=== PATIENT | female | born 1940 | race Caucasian/White ===

== ENCOUNTER 2020-10-14 10:51 | Outpatient (REF) | payer MEDICARE, SELFPAY ==
--- NOTE | ~2020-10-14 | MM_ITS ---
EXAMINATION: BONE DENSITOMETRY CLINICAL INDICATION: Other specified disorders of bone density and structure. COMPARISON: Previous BD dated 06/10/2016 and baseline BD dated 04/06/2011. TECHNIQUE: Using a [employer] DXA System (software version: 13.1) manufactured by [employer], dual-energy x-ray absorptiometry was performed of the lumbar spine and left hip. The images are of good technical quality. Summary results are attached. FINDINGS: AP SPINE L1-L4: Current: BMD 1.304 g/cm2, Z-score 2.0, T-score 1.0, normal, 8.8% increase from previous, 1.7% increase from baseline (<5% change is not significant). Prior: BMD 1.198 g/cm2. Baseline: BMD 1.282 g/cm2. LEFT FEMUR, NECK: Current: BMD 0.868 g/cm2, Z-score 0.3, T-score -1.2, osteopenia. Prior: BMD 0.896 g/cm2. Baseline: BMD 0.854 g/cm2. LEFT FEMUR, TOTAL: Current: BMD 1.066 g/cm2, Z-score 1.8, T-score 0.5, normal, 1.1% decrease from previous, 3.4% decrease from baseline (<5% change is not significant). Prior: BMD 1.078 g/cm2. Baseline: BMD 1.104 g/cm2. IDENTIFIED RISK FACTORS: Height loss, low calcium intake, secondary osteoporosis, menopause, bilateral oophorectomy. HISTORY OF FRACTURE: Wrist, trauma, childhood. MEDICATIONS: Calcium supplements or multivitamin, vitamin D. MM/XR DEXA axial skeleton IMPRESSION: 1. DIAGNOSIS: Osteopenia based on the lowest T-score value of -1.2 in the femoral neck applying World Health Organization criteria. 2. 10-YEAR FRACTURE RISK PREDICTION, FRAX: Major osteoporotic fracture (clinical spine, forearm, hip or shoulder) 10.7%. Hip fracture 2.0%. 3. Treatment Recommendations: NOF guidelines recommend consideration for treatment in postmenopausal women and men age 50 and older presenting with the following: -A hip or vertebral (clinical or morphometric) fracture. -T-score less than or equal to -2.5 at the femoral neck or spine after appropriate evaluation to exclude secondary causes. -Low bone mass at the hip or spine and a 10-year fracture probability by FRAX of greater than or equal to 3% for hip fracture or greater than or equal to 20% for major osteoporotic fracture based on the [place] adapted WHO algorithm. 4. Other Recommendations: All treatment decisions require clinical judgment and consideration of individual patient factors, including patient preferences, comorbidities, previous drug use, risk factors not captured in the FRAX model (e.g. frailty, falls, vitamin D deficiency, increased bone turnover, interval significant decline in bone density) and possible under or overestimation of fracture risk by FRAX. Additional medical evaluation for secondary cause of low bone mineral density may be appropriate. FUTURE SCAN RECOMMENDATION: People with diagnosed cases of osteoporosis or at high risk for fracture should have regular bone mineral density tests. For patients eligible for Medicare, routine testing is allowed once every 2 years. The testing frequency can be increased to one year for patients who have rapidly progressing disease, those who are receiving or discontinuing medical therapy to restore bone mass, or have additional risk factors.
== END 2020-10-14 10:52 | disposition home or self-care (01) ==
LOC: HO.MAMMO 10:51
PROVIDERS: PCP Internal Medicine; Visit Provider Internal Medicine
DX: M81.8 Other osteoporosis without current pathological fracture (principal); M85.89 Other specified disorders of bone density and structure, multiple sites; E58 Dietary calcium deficiency; Z78.0 Asymptomatic menopausal state; Z90.722 Acquired absence of ovaries, bilateral
CPT/HCPCS: 77080

== ENCOUNTER 2021-04-07 12:45 | Outpatient (REF) | payer MEDICARE, SELFPAY ==
[2021-04-07 13:11] LABS: MANUAL DIFF FLAG NO
[2021-04-07 13:16] LABS: Basophils Percent Auto 0.3 % (0-2); Eosinophils Absolute Auto 0.1 X10*3/uL (0.0-0.4); Eosinophils Percent Auto 1.9 % (0-4); Hematocrit 42.9 % (37-47); Hemoglobin 14.6 g/dl (12.0-16.0); Imm Gran Abs Auto 0.02 X10*3/uL (0.00-0.03); Imm Gran Pct Auto 0.3 % (0.0-0.4); Lymphocytes Absolute Auto 1.5 X10*3/uL (1.2-4.9); Lymphocytes Percent Auto 23.3 % (20-40); Mean Corpuscular Hemoglobin 33.7 pg (27.0-33.0); Mean Corpuscular Volume 99.1 fL (80-98); Mean Platelet Volume 11.7 fL (9.4-12.3); Monocytes Absolute Auto 0.6 X10*3/uL (0.1-1.2); Monocytes Percent Auto 9.6 % (2-11); Neutrophils Percent Auto 64.6 % (45-73); Platelet Count 157 X10*3/uL (160-400); Red Blood Count 4.33 X10*6/uL (4.20-5.50); Red Cell Distribution Width 12.1 % (11.0-16.0); White Blood Count 6.3 X10*3/uL (4.8-10.8)
[2021-04-07 13:45] LABS: Alanine Aminotransferase 25 U/L (0-31); Albumin Level 4.2 g/dL (3.5-5.0); Alkaline Phosphatase 65 U/L (39-117); Anion Gap 11 (12-20); Aspartate Amino Transferase 32 U/L (5-31); Blood Urea Nitrogen 7 mg/dL (9-16); Calcium 9.4 mg/dL (8.4-10.2); Carbon Dioxide 27 mmol/L (22-29); Chloride 110 mmol/L (96-108); Cholesterol 148 mg/dL; Estimated Glomerular Filt Rate > 60; Glucose Random 95 mg/dL (60-115); HDL Cholesterol 53 mg/dL; LDL Cholesterol Calculated 74 mg/dl; Potassium 4.5 mmol/L (3.3-5.1); Sodium 143 mmol/L (135-145); Total Protein 6.5 g/dL (6.5-8.0); Triglycerides 109 mg/dL
[2021-04-07 14:07] LABS: Free T4 (Free Thyroxine) 0.97 ng/dL (0.71-1.85); Thyroid Stimulating Hormone 0.98 uIU/mL (0.32-4.0); Vitamin D 25-OH Total 35.2 ng/mL (>30)
[2021-04-07 14:26] LABS: Vitamin B12 487 pg/mL (200-900)
[2021-04-08 11:53] LABS: SARS COV2 IgG Negative (Negative)
== END 2021-04-07 12:46 | disposition home or self-care (01) ==
LOC: HO.10HDL 12:45
PROVIDERS: PCP Internal Medicine; Visit Provider Internal Medicine
DX: Z20.822 Contact with and (suspected) exposure to COVID-19 (principal); E78.00 Pure hypercholesterolemia, unspecified; G25.0 Essential tremor
CPT/HCPCS: 36415; 80053; 80061; 82306; 82607; 82746; 84439; 84443; 85025; 86769

== ENCOUNTER 2022-03-29 09:44 | Outpatient (REF) | payer MEDICARE, SELFPAY ==
[2022-03-29 10:48] LABS: MANUAL DIFF FLAG NO
[2022-03-29 10:52] LABS: Basophils Percent Auto 0.3 % (0-2); Eosinophils Absolute Auto 0.2 X10*3/uL (0.0-0.4); Eosinophils Percent Auto 2.9 % (0-4); Hematocrit 41.5 % (37.0-47.0); Hemoglobin 14.1 g/dl (12.0-16.0); Imm Gran Abs Auto 0.02 X10*3/uL (0.00-0.03); Imm Gran Pct Auto 0.3 % (0.0-0.4); Lymphocytes Absolute Auto 1.6 X10*3/uL (1.2-4.9); Lymphocytes Percent Auto 27.8 % (20-40); Mean Corpuscular Hemoglobin 33.3 pg (27.0-33.0); Mean Corpuscular Volume 98.1 fL (80.0-98.0); Mean Platelet Volume 11.9 fL (9.4-12.3); Monocytes Absolute Auto 0.5 X10*3/uL (0.1-1.2); Monocytes Percent Auto 7.7 % (2-11); Neutrophils Absolute Auto 3.6 x10*3/uL (2.0-8.3); Platelet Count 177 X10*3/uL (160-400); Red Blood Count 4.23 X10*6/uL (4.20-5.50); Red Cell Distribution Width 11.9 % (11.0-16.0); White Blood Count 5.9 X10*3/uL (4.8-10.8)
[2022-03-29 11:19] LABS: Alanine Aminotransferase 19 U/L (0-31); Albumin Level 3.9 g/dL (3.5-5.0); Alkaline Phosphatase 76 U/L (39-117); Anion Gap 13 (12-20); Aspartate Amino Transferase 27 U/L (5-31); Bilirubin Total 0.8 mg/dL (0.0-1.0); Blood Urea Nitrogen 9 mg/dL (9-16); Calcium 8.7 mg/dL (8.4-10.2); Carbon Dioxide 27 mmol/L (22-29); Chloride 107 mmol/L (96-108); Cholesterol 147 mg/dL; Estimated Glomerular Filt Rate > 60; Glucose Random 96 mg/dL (60-115); HDL Cholesterol 56 mg/dL; LDL Cholesterol Calculated 71 mg/dl; Potassium 4.5 mmol/L (3.3-5.1); Sodium 142 mmol/L (135-145); Total Protein 6.3 g/dL (6.5-8.0); Triglycerides 103 mg/dL
[2022-03-29 11:44] LABS: Free T4 (Free Thyroxine) 0.94 ng/dL (0.71-1.85); Thyroid Stimulating Hormone 1.76 uIU/mL (0.32-4.0); Vitamin D 25-OH Total 27.8 ng/mL (>30)
[2022-03-29 12:00] LABS: Folate > 20.0 ng/mL (> or = 4.0); Vitamin B12 340 pg/mL (200-900)
== END 2022-03-29 09:45 | disposition home or self-care (01) ==
LOC: HO.10HDL 09:44
PROVIDERS: Visit Provider Internal Medicine
DX: E78.00 Pure hypercholesterolemia, unspecified (principal)
CPT/HCPCS: 36415; 80053; 80061; 82306; 82607; 82746; 84439; 84443; 85025

== ENCOUNTER 2022-07-12 14:17 | Outpatient (REF) | payer MEDICARE, SELFPAY ==
--- NOTE | ~2022-07-12 | US_ITS ---
EXAMINATION: US VENOUS ULTRASOUND WITH DOPPLER LOWER EXTREMITY, BILATERAL CLINICAL INFORMATION: Lower extremity edema and swelling. COMPARISON: None TECHNIQUE: Ultrasound of the deep veins is performed from the hip to the calf with compression sonography and color and pulse Doppler assessment. Spectral analysis with color-flow imaging is performed. FINDINGS: RIGHT: There is normal venous compression and respiratory variation and augmented flow. The visualized common femoral vein, superficial femoral vein, profunda femoral vein, popliteal vein, and the trifurcation region shows no evidence of deep venous thrombosis. No right popliteal cyst. Mild subcutaneous edema in the right calf. LEFT: There is normal venous compression and respiratory variation and augmented flow. The visualized common femoral vein, superficial femoral vein, profunda femoral vein, popliteal vein, and the trifurcation region shows no evidence of deep venous thrombosis. No left popliteal cyst. Mild subcutaneous edema in the left calf. If the patient's symptoms persist, followup ultrasound in 5 days 7 days might be of value to exclude proximal propagation from a non-visualized calf vein. US/US venous duplex LE BI IMPRESSION: 1. No evidence for deep venous thrombosis in the visualized veins of the bilateral lower extremities. 2. Mild subcutaneous edema in the calves bilaterally.
== END 2022-07-12 14:18 | disposition home or self-care (01) ==
LOC: HO.US 14:17
PROVIDERS: PCP Internal Medicine; Visit Provider Internal Medicine
DX: R60.0 Localized edema (principal)
CPT/HCPCS: 93970

== ENCOUNTER → 2022-08-23 09:12 | Outpatient (REF) | payer MEDICARE, SELFPAY ==
--- NOTE | 2022-08-23 09:25 | CA_ITS ---
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 The calculated ejection fraction is 64% by biplane method. - No obvious valvular pathology seen on this study. Findings Left Ventricle Normal left ventricular cavity size. There is normal left ventricular wall thickness. The left ventricular systolic function is normal. The calculated ejection fraction is 64% by biplane method. There is no evidence of regional wall motion abnormalities. Diastolic function is normal for age. LV peak GLS -20.2%. Right Ventricle Normal right ventricular cavity size and systolic function. Atria Both atria are normal in size. Aortic Valve There is a normal trileaflet aortic valve. There is no aortic valve stenosis. There is no aortic valve regurgitation. Mitral Valve The mitral valve appears normal. There is trace mitral valve regurgitation. There is no mitral valve stenosis. Pulmonic Valve The pulmonic valve is likely normal. Tricuspid Valve There is trace tricuspid valve regurgitation. There is no evidence of pulmonary hypertension. Great Vessels The asc aorta is normal in size. Venous The inferior vena cava is normal in size and collapses greater than 50% with inspiration. Pericardium/Pleural There is a trivial pericardial effusion. Prior Study Comparison No significant change compared to prior study dated: 04/28/2017. Recommendations, Care & Conclusions No obvious valvular pathology seen on this study. Measurements 2D Linear Measurements IVSd: 0.90 0.6-0.9/0.6-1.0 cm LVIDd: 4.67 3.9-5.3/4.2-5.9 cm LVIDd Index: 2.52 2.4-3.2/2.2-3.1 cm/m2 LVIDs: 2.71 2.0-3.6 cm LVPWd: 0.93 0.7-1.1 cm LA Diam: 3.80 2.7-3.8/3.0-4.0 cm LAIDs Index: 2.05 1.5-2.3 cm/m2 LV Mass: 180.22 67-162/88-224 g LV Mass Index: 97.41 43-95/49-115 g/m2 LVOT Diam: 1.90 3.0+(-)1.3 cm 2D Systolic Function EF 4C: 65.20 >55% EF 2C: 64.10 >55% EF BiP: 64.20 >55% Mitral Valve MV Pk E: 0.88 MV PK A: 0.92 MV Decel Time: 264.00 E/A: 1.00 E'Lateral: 8.16 E'Medial: 7.29 E/E' Med: 12.00 E/E' Lat: 10.80 PHT: 77.00 MVA PHT: 2.86 Decel Christian: 3.33 Aortic Valve AoV Pk Percy: 1.32 AoV Mn Percy: 0.94 AoV VTI: 0.37 AoV Pk Grad: 7.00 Aov Mn Grad: 4.00 GREGORY Cont.VTI: 1.90 LVOT LVOT Pk Percy: 0.86 LVOT Mn Percy: 0.59 LVOT VTI: 0.25 LVOT Pk Grad: 3.00 LVOT Mn Grad: 2.00 LVOT Diam: 1.90 LVOT Area: 2.84 Diastolic Function MV Pk E: 0.88 MV Pk A: 0.92 E/A: 1.00 E'Medial: 7.29 E/E' Med: 12.00 E' Laterial: 8.16 E/E' Lat: 10.80 Right Ventricle TAPSE (mm): 27.30 TVS' Percy: 10.10 Tricuspid Valve TR Pk Percy: 2.32 TR Pk Grad: 22.00 RA Press: 3.00 RVSP: 25.00 Great Vessels Aorta Sinus of Valsalva: 2.65 2.0-3.[address] Ridge: 2.03 1.7-3.4 cm Ao Asc: 3.10 2.1-3.4 cm Updated in Other Vendor System with Status of Final Jair Martins MD electronically signed on 08/23/2022 4:20:51 PM with status of Final
== END ==
LOC: HO.CARD 09:12
PROVIDERS: PCP Internal Medicine; Visit Provider Nurse Practitioner Family
DX: R06.02 Shortness of breath (principal); R60.0 Localized edema
CPT/HCPCS: 93306; 93356

== ENCOUNTER → 2022-09-27 11:45 | Outpatient (REF) | payer MEDICARE, SELFPAY ==
--- NOTE | 2022-09-27 11:50 | ECG_ITS ---
Test Reason : sob Blood Pressure : / mmHG Vent. Rate : 065 BPM Atrial Rate : 065 BPM P-R Int : 146 ms QRS Dur : 078 ms QT Int : 400 ms P-R-T Axes : 055 036 057 degrees QTc Int : 416 ms Normal sinus rhythm Normal ECG No previous ECGs available Referred By: Dyana Guevara Electronically Signed By:Bowen Mallory
== END ==
LOC: HO.CARD 11:45
PROVIDERS: PCP Internal Medicine; Visit Provider Nurse Practitioner Family
DX: R06.02 Shortness of breath (principal); R60.0 Localized edema
CPT/HCPCS: 93005

== ENCOUNTER 2023-04-21 12:57 | Outpatient (AMB) | payer MEDICARE, SELFPAY ==
--- NOTE | 2023-04-21 12:57 | A.OFFPC_ITS ---
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 Blood work was not done [facility] Medical History (Updated 10/15/22 @ 13:18 by Luke Lomeli MD) Constipation UTI (urinary tract infection) Left renal stone C. difficile diarrhea Patellofemoral arthritis Degenerative disc disease, lumbar Essential tremor Insomnia Osteopenia Obesity Hypercholesterolemia Surgical History (Updated 03/31/22 @ 16:09 by CAMI Watson) History of colonoscopy Adnexal mass History of colectomy Diverticular disease Social History Housing: House Alcohol intake: current Alcohol intake frequency: a few times a week Patient Tobacco Use Status: Former Tobacco user Tobacco use type: Cigarette Years Smoked: Quit 1980 hx of 2 pack a day e-Cigarette/Vaping Use: Never Used Second Hand Smoke Exposure: No service: No Current occupational status: retired Cognitive needs: No Hearing needs: No Vision needs: No Questionnaire PHQ-9 Over the last 2 weeks, how often have you been bothered by any of the following problems? 1. Little interest or pleasure in doing things: not at all 2. Feeling down, depressed, or hopeless: not at all 3. Trouble falling or staying asleep, or sleeping too much: not at all 4. Feeling tired or having little energy: not at all 5. Poor appetite or overeating: not at all 6. Feeling bad about yourself - or that you are a failure or have let yourself or your family down: not at all 7. Trouble concentrating on things, such as reading the newspaper or watching television: not at all 8. Moving or speaking so slowly that other people could have noticed. Or the opposite - being so fidgety or restless that you have been moving around a lot more than usual: not at all 9. Thoughts that you would be better off or of hurting yourself in some way: not at all Total score: 0 Depression Screening Interpretation: Negative Source: Developed by Drs. Russ Neely, Nehal Landry, Jaiden Khanna and colleagues, with an educational irineo from [employer]. Thrive Questionnaire Date Thrive assessed: 10/15/22 AUDIT C Alcohol Use Questionnaire (AUDIT-C) 1. How often do you have a drink containing alcohol?: 2-3 times a week 2. How many drinks containing alcohol do you have on a typical day when you are drinking?: 1 or 2 3. How often do you have six or more drinks on one occasion?: Never Total Score: 3 Score Reviewed/Action Taken: Yes ZARIA-7 AMB Questionnaire ZARIA-7 Date ZARIA - 7 assessed: 10/15/22 Source: Developed by Drs. Russ Neely, Nehal Landry, Jaiden Khanna and colleagues, with an educational irineo from [employer]. Physical exam (Primary Care) Vital Signs: Last Vital Signs Pulse 60 04/21/23 12:58 BP 118/80 04/21/23 12:58 Pulse Ox 99 04/21/23 12:58 Oxygen Delivery Method Room Air 04/21/23 12:58 BMI result Body Mass Index 35.6 Tobacco/Smoking Status: Tobacco use Status Tobacco use date assessed 04/21/23 04/21/23 13:11 Patient Tobacco Use Status Former Tobacco user 04/21/23 13:11 Tobacco use type Cigarette 04/21/23 13:11 e-Cigarette/Vaping Use Never Used 04/21/23 13:11 PHQ-9: PHQ-9 Score PHQ-9: Total score 0 04/21/23 13:11 Depression Screening Interpretation: Negative Thrive Assessment: Date of Thrive Assessment Date Thrive assessed 10/15/22 04/21/23 13:11 Const General: alert; No acute distress Eyes Conjunctivae: conjunctivae normal Resp Auscultation: clear to auscultation bilaterally Cardio Rate: regular rate Rhythm: regular rhythm GI Inspection: Yes normal to inspection Extrem General: Yes normal to inspection and No edema Assessment and Plan Assessment & Plan (1) Obesity: Code(s): E66.9 - Obesity, unspecified Qualifiers: Obesity type: due to excess calories Obesity classification: adult class 2 (BMI 35 - 39.9) Serious obesity comorbidity presence: with serious comorbidity Body mass index: BMI 35.0-35.9 Qualified Code(s): E66.01 - Morbid (severe) obesity due to excess calories; Z68.35 - Body mass index [BMI] 35.0- 35.9, adult Plan: Diet and exercise (2) Hypercholesterolemia: Code(s): E78.00 - Pure hypercholesterolemia, unspecified Plan: Avoid fried foods, chicken skin, eggs, butter margarine, pastries and meat. Be it pork or beef they have a lot of cholesterol patient is on simvastatin 20 mg once a day LDL goal of less than 130 and triglyceride of less than 150 (3) Peripheral vascular disease: Code(s): I73.9 - Peripheral vascular disease, unspecified Plan: When sitting down elevate the legs, exercise, and support stockings (4) Urge incontinence: Code(s): N39.41 - Urge incontinence Plan: Continue with oxybutynin and Mirabegron (5) Essential tremor: Code(s): G25.0 - Essential tremor Plan: Continue with propranolol Coding Level of Care Code Est Pt Level 4 (74462) Diagnoses Class 2 severe obesity due to excess calories with serious comorbidity and body mass index (BMI) of 35.0 to 35.9 in adult E66.01; Z68.35 Obesity type: due to excess calories Obesity classification: adult class 2 (BMI 35 - 39.9) Serious obesity comorbidity presence: with serious comorbidity Body mass index: BMI 35.0-35.9 Hypercholesterolemia E78.00 Peripheral vascular disease I73.9 Urge incontinence N39.41 Essential tremor G25.0 Additional Codes PHQ-9 - 88617 - PHQ-9 Billing: ([id number])
[2023-04-21 12:58] VITALS: BP 118/80; PULSE 60; O2SAT 99; BMI 35.6
== END 2023-04-21 13:30 | disposition home or self-care (01) ==
PROVIDERS: Visit Provider Internal Medicine
DX: E66.01 Morbid (severe) obesity due to excess calories (principal); Z68.35 Body mass index [BMI] 35.0-35.9, adult; E78.00 Pure hypercholesterolemia, unspecified; I73.9 Peripheral vascular disease, unspecified; N39.41 Urge incontinence; G25.0 Essential tremor; K59.01 Slow transit constipation
CPT/HCPCS: 99214

== ENCOUNTER 2023-09-21 10:56 | Outpatient (AMB) | payer MEDICARE, SELFPAY ==
[2023-09-21 10:57] VITALS: BP 126/68; PULSE 62; O2SAT 97; BMI 35.6
--- NOTE | 2023-09-21 10:57 | A.OFFPC_ITS ---
Vital Signs 3 09/21/23 10:57 Height 5 ft 2.5 in Weight 198 lb 0.4 oz BMI 35.6 BP 126/68 Blood Pressure Location Lt brachial Position Sitting Pulse 62 Pulse Source Pulse Oximeter Pulse Oximetry (%) 97 Oxygen Delivery Method Room Air Intake Visit Reasons: leg pain Intake Note: pt states right knee pain [id number] with no relief Medical Lab Director Required: No Allergies No Known Allergies Allergy (Verified 09/21/23 11:08) Medication List - Last Reconciled 09/21/23 by Luke Lomeli MD ascorbate calcium (vitamin C) 250 mg PO DAILY blood pressure monitor (Blood Pressure Kit) As directed meloxicam 15 mg PO DAILY 90 days mirabegron ER (Myrbetriq) 25 mg PO DAILY multivitamin 1 tab PO DAILY oxybutynin chloride 5 mg PO BID propranolol 40 mg PO BID 90 days sennosides-docusate sodium 8.6-50 mg (Senna Plus) 2 tab-caps (2 x 8.6-50 mg) PO BEDTIME simvastatin 20 mg PO QPM 90 days trazodone 50 mg PO BEDTIME 90 days Tobacco use date assessed: 09/21/23 Fall risk assessment: No Falls in past year Last assessed Fall Risk: 09/21/23 Dental Screening Dental Screen Date: 09/21/23 HPI leg pain 2 HPI0 Details 82-year-old obese female with hyperchole sterolemia peripheral vascular disease essential tremor in urge incontinence constipation last seen in April 2023. R knee pain 2 week denies any trauma or fall. Denies doing anything that made the pain. Discussed also the need to get blood work done as well as bone density. [facility] Medical History (Updated 09/21/23 @ 11:40 by Luke Lomeli MD) Constipation UTI (urinary tract infection) Left renal stone C. difficile diarrhea Patellofemoral arthritis Degenerative disc disease, lumbar Essential tremor Insomnia Osteopenia Obesity Hypercholesterolemia Surgical History (Updated 03/31/22 @ 16:09 by CAMI aWtson) History of colonoscopy Adnexal mass History of colectomy Diverticular disease Social History Housing: House Alcohol intake: current Alcohol intake frequency: a few times a week Patient Tobacco Use Status: Former Tobacco user Tobacco use type: Cigarette Years Smoked: Quit 1980 hx of 2 pack a day e-Cigarette/Vaping Use: Never Used Second Hand Smoke Exposure: No service: No Current occupational status: retired Cognitive needs: No Hearing needs: No Vision needs: No Questionnaire Thrive Questionnaire Date Thrive assessed: 10/15/22 ZARIA-7 AMB Questionnaire ZARIA-7 Date ZARIA - 7 assessed: 10/15/22 Source: Developed by Drs. Russ Neely, Nehal Landry, Jaiden Khanna and colleagues, with an educational irineo from [employer]. Physical exam (Primary Care) Vital Signs: Last Vital Signs Pulse 62 09/21/23 10:57 BP 126/68 09/21/23 10:57 Pulse Ox 97 09/21/23 10:57 Oxygen Delivery Method Room Air 09/21/23 10:57 BMI result Body Mass Index 35.6 Tobacco/Smoking Status: Tobacco use Status Tobacco use date assessed 09/21/23 09/21/23 10:58 Patient Tobacco Use Status Former Tobacco user 09/21/23 10:57 Tobacco use type Cigarette 09/21/23 10:57 e-Cigarette/Vaping Use Never Used 09/21/23 10:57 Thrive Assessment: Date of Thrive Assessment Date Thrive assessed 10/15/22 09/21/23 10:57 Const General: alert; No acute distress Eyes Conjunctivae: conjunctivae normal Resp Auscultation: clear to auscultation bilaterally Cardio Rate: regular rate Rhythm: regular rhythm GI Inspection: Yes normal to inspection Extrem General: Yes normal to inspection and No edema Knee images: 2 1. Tender on the anterior medial superior(tibia) your leg area swelling of the knee no erythema Assessment and Plan Assessment & Plan (1) Urge incontinence: Code(s): N39.41 - Urge incontinence Plan: Patient presently on oxybutynin and mirabegron (2) Obesity: Code(s): E66.9 - Obesity, unspecified Qualifiers: Body mass index: BMI 35.0-35.9 Obesity classification: adult class 2 (BMI 35 - 39.9) Obesity type: due to excess calories Serious obesity comorbidity presence: with serious comorbidity Qualified Code(s): E66.01 - Morbid (severe) obesity due to excess calories; Z68.35 - Body mass index [BMI] 35.0-35.9, adult Plan: Diet and exercise (3) Hypercholesterolemia: Code(s): E78.00 - Pure hypercholesterolemia, unspecified Plan: Avoid fried foods, chicken skin, eggs, butter margarine, pastries and meat. Be it pork or beef they have a lot of cholesterol LDL goal of less than 130 and triglyceride of less than 150. Patient on simvastatin 20 mg (4) Essential tremor: Code(s): G25.0 - Essential tremor Plan: Patient presently on propranolol (5) Pes anserinus bursitis of right knee: Code(s): M70.51 - Other bursitis of knee, right knee Plan: Orthopedic referral done, continue to use the meloxicam for pain as needed (6) Osteopenia: Comment: October 2020 Code(s): M85.80 - Other specified disorders of bone density and structure, unspecified site Plan: Bone density requested Orders: Orders 2 XR DEXA axial skeleton Today M81.0 - Age-related osteoporosis without current pathological fracture, M85.80 - Other specified disorders of bone density and structure, unspecified site Referrals 2 Orthopedics Referral M70.51 - Other bursitis of knee, right knee Medications: Refilled 2 propranolol 40 mg PO BID 180 tabs 2RF 90 days M85.80 - Other specified disorders of bone density and structure, unspecified site simvastatin 20 mg PO QPM 90 tabs 2RF 90 days M85.80 - Other specified disorders of bone density and structure, unspecified site Coding Level of Care Code Est Pt Level 4 (47105) Diagnoses Urge incontinence N39.41 Class 2 severe obesity due to excess calories with serious comorbidity and body mass index (BMI) of 35.0 to 35.9 in adult E66.01; Z68.35 Body mass index: BMI 35.0-35.9 Obesity classification: adult class 2 (BMI 35 - 39.9) Obesity type: due to excess calories Serious obesity comorbidity presence: with serious comorbidity Hypercholesterolemia E78.00 Essential tremor G25.0 Pes anserinus bursitis of right knee M70.51 Osteopenia M85.80
== END 2023-09-21 11:50 | disposition home or self-care (01) ==
PROVIDERS: PCP Internal Medicine; Visit Provider Internal Medicine
DX: N39.41 Urge incontinence (principal); E66.01 Morbid (severe) obesity due to excess calories; I73.9 Peripheral vascular disease, unspecified; Z68.35 Body mass index [BMI] 35.0-35.9, adult; E78.00 Pure hypercholesterolemia, unspecified; G25.0 Essential tremor; M70.51 Other bursitis of knee, right knee; M85.80 Other specified disorders of bone density and structure, unspecified site
CPT/HCPCS: 99214

== ENCOUNTER 2023-12-28 10:23 | Outpatient (AMB) | payer MEDICARE, SELFPAY ==
[2023-12-28 10:29] VITALS: BP 148/90; PULSE 60; O2SAT 97; BMI 35.5
--- NOTE | 2023-12-28 10:31 | AM.OFFVISMDC ---
Intake Vital Signs 12/28/23 10:29 Height 5 ft 2.5 in Weight 197 lb BMI 35.5 BP 148/90 H Blood Pressure Location Lt brachial Position Sitting Pulse 60 Pulse Source Pulse Oximeter Pulse Oximetry (%) 97 Oxygen Delivery Method Room Air Intake Visit Reasons: GATO [id number] Allergies No Known Allergies Allergy (Verified 12/28/23 10:29) Medication List - Last Reconciled 12/28/23 by Luke Lomeli MD ascorbate calcium (vitamin C) 250 mg PO DAILY blood pressure monitor (Blood Pressure Kit) As directed meloxicam 15 mg PO DAILY 90 days mirabegron ER (Myrbetriq) 25 mg PO DAILY multivitamin 1 tab PO DAILY oxybutynin chloride 5 mg PO BID propranolol 40 mg PO BID 90 days sennosides-docusate sodium 8.6-50 mg (Senna Plus) 2 tab-caps (2 x 8.6-50 mg) PO BEDTIME simvastatin 20 mg PO QPM 90 days trazodone 50 mg PO BEDTIME 90 days [facility] Medical History (Updated 12/28/23 @ 10:31 by Luke Lomeli MD) Bilateral lower extremity edema Adult general medical exam Shortness of breath Encounter for screening mammogram for malignant neoplasm of breast Screening for breast cancer Constipation UTI (urinary tract infection) Left renal stone C. difficile diarrhea Patellofemoral arthritis Degenerative disc disease, lumbar Essential tremor Insomnia Osteopenia Obesity Hypercholesterolemia Surgical History (Updated 03/31/22 @ 16:09 by CAMI Watson) History of colonoscopy Adnexal mass History of colectomy Diverticular disease Social History (Updated 12/28/23 @ 10:50 by Luke Lomeli MD) Housing: House Alcohol intake: current Alcohol intake frequency: a few times a week Comment: 2-3 x a week 2 glasses Patient Tobacco Use Status: Former Tobacco user Tobacco use type: Cigarette Years Smoked: Quit 1980 hx of 2 pack a day e-Cigarette/Vaping Use: Never Used Second Hand Smoke Exposure: No service: No Current occupational status: retired Cognitive needs: No Hearing needs: No Vision needs: No Questionnaire Medicare Wellness Checkup What is your age?: 82 or older What gender do you identify with?: female During the past 4 weeks, how much have you been bothered by emotional problems such as feeling anxious, depressed, irritable, sad or downhearted, and blue?: not at all During the past 4 weeks, has your physical & emotional health limited your social activities with family, friends, neighbors, or groups?: not at all During the past 4 weeks, how much bodily pain have you generally had?: no pain During the past 4 weeks, was someone available to help you if you needed & wanted help?: yes, as much as I wanted During the past 4 weeks, what was the hardest physical activity you could do for at least 2 minutes?: moderate Can you get to places out of walking distance without help? (For eg., can you travel alone on buses, taxis or drive your car?): Yes Can you go shopping for groceries or clothes without someone's help?: Yes Can you prepare your own meals?: Yes Because of any health problems, do you need the help of another person with your personal care needs such as eating, bathing, dressing or getting around the house?: No Can you handle your own money without help?: Yes During the past 4 weeks, how would you rate your health in general?: very good During the past 4 weeks how have things been going for you?: pretty well Are you having difficulties driving your car?: no Do you always fasten your seat belt when you are in a car?: yes, usually During past 4 weeks, have you been bothered by the following: never: Falling or dizzy when standing up, Sexual problems?, Trouble eating well? and Teeth or denture problems? and sometimes: Tiredness or fatigue? Have you fallen 2 or more times in the past year?: No Are you afraid of falling?: No Are you a smoker?: no During the past 4 weeks, how many drinks of wine, beer, or other alcoholic beverages did you have?: 2-5 drinks per week Do you exercise for about 20 minutes 3 or more times a week?: no, I usually do not exercise this much Have you been given information to help with the following?: no: Hazards in your house that might hurt you? and no: Keeping track of your medications? How often do you have trouble taking medicines the way you have been told to take them?: I always take medicine as prescribed How confident are you that you can control & manage most of your health problems?: very confident What is your race?: White PHQ-9 Over the last 2 weeks, how often have you been bothered by any of the following problems? 1. Little interest or pleasure in doing things: not at all 2. Feeling down, depressed, or hopeless: not at all 3. Trouble falling or staying asleep, or sleeping too much: not at all 4. Feeling tired or having little energy: not at all 5. Poor appetite or overeating: not at all 6. Feeling bad about yourself - or that you are a failure or have let yourself or your family down: not at all 7. Trouble concentrating on things, such as reading the newspaper or watching television: not at all 8. Moving or speaking so slowly that other people could have noticed. Or the opposite - being so fidgety or restless that you have been moving around a lot more than usual: not at all 9. Thoughts that you would be better off or of hurting yourself in some way: not at all Total score: 0 Depression Screening Interpretation: Negative Depression Screening Done: Yes 35273 - PHQ-9 Billing: Yes Source: Developed by Drs. Russ Neely, Nehal Landry, Jaiden Khanna and colleagues, with an educational irineo from [employer]. Physical Exam Vital Signs: Last Vital Signs Pulse 60 12/28/23 10:29 BP 148/90 H 12/28/23 10:29 Pulse Ox 97 12/28/23 10:29 Oxygen Delivery Method Room Air 12/28/23 10:29 BMI result Body Mass Index 35.5 Immunizations tetanus-diphtheria toxoids-Td 2 Lf unit-2 Lf unit/0.5 mL IM suspension Performing Provider: Luke Lomeli MD [facility] Administered by: CARROLL Shi on 12/28/23 11:08 Dose Route Admin Location Dispensed Lot Number Expiration Date [facility] Bindery Operator 0.5 mL IM Left Deltoid 0.5 mL [id number] 09/24/24 [address]-6 [employer] VIS Given Date VIS Provided VIS Publication Date 12/28/23 Single Vaccine 21 Eligibility Eligibility Date Funding Source Not C Eligible 12/28/23 State funds Assessment & Plan Assessment & Plan (1) Medicare annual wellness visit, subsequent: Code(s): Z00.00 - Encounter for general adult medical examination without abnormal findings Plan: Patient is advised to eat healthy, keep well hydrated, keep active and have adequate sleep. (2) Obesity: Code(s): E66.9 - Obesity, unspecified Qualifiers: Body mass index: BMI 35.0-35.9 Obesity classification: adult class 2 (BMI 35 - 39.9) Obesity type: due to excess calories Serious obesity comorbidity presence: with serious comorbidity Qualified Code(s): E66.01 - Morbid (severe) obesity due to excess calories; Z68.35 - Body mass index [BMI] 35.0-35.9, adult Plan: Diet and exercise (3) Hypercholesterolemia: Code(s): E78.00 - Pure hypercholesterolemia, unspecified Plan: Avoid fried foods, chicken skin, eggs, butter margarine, pastries and meat. Be it pork or beef they have a lot of cholesterol LDL goal of less than 130 and triglyceride of less than 150. Patient is advised to get blood work done. On simvastatin 20 mg at bedtime (4) Essential tremor: Code(s): G25.0 - Essential tremor Plan: Continue with propranolol (5) Osteopenia: Comment: October 2020 Code(s): M85.80 - Other specified disorders of bone density and structure, unspecified site Plan: Patient was advised to get a follow-up bone density (6) Urge incontinence: Code(s): N39.41 - Urge incontinence Plan: Timed voiding meaning every 1-2 hours even if you do not feel like urinating empty the bladder, avoid drinks with high sweet content like juices or caffeine that makes her urinate, 2 hours before you sleep hold liquids so that in the morning you do not get the bladder to be too full. On oxybutynin 5 mg twice a day and Motegrity 25 mg once a day (7) Blood pressure elevated without history of HTN: Code(s): R03.0 - Elevated blood-pressure reading, without diagnosis of hypertension Plan: advised to monitor the BP and record Orders: Orders Td State Immunization Today Z23 - Encounter for immunization XR DEXA axial skeleton Today M81.0 - Age-related osteoporosis without current pathological fracture, M85.80 - Other specified disorders of bone density and structure, unspecified site Medications: New tetanus-diphtheria toxoids-Td 0.5 mL IM ONCE 0.5 mL 0RF Z23 - Encounter for immunization Refilled trazodone 50 mg PO BEDTIME 90 days 90 tabs 2RF M85.80 - Other specified disorders of bone density and structure, unspecified site Discontinued mirabegron ER (Myrbetriq) Discontinued Reason: Doctor's Order 25 mg PO DAILY 30 tabs 0RF N39.41 - Urge incontinence Quality Reporting (2019) Depression/Bipolar (159/160/161/177) PHQ-9: Total score: 0 Coding Level of Care Code Medicare Subsequent (G0439) Diagnoses Medicare annual wellness visit, subsequent Z00.00 Class 2 severe obesity due to excess calories with serious comorbidity and body mass index (BMI) of 35.0 to 35.9 in adult E66.01; Z68.35 Body mass index: BMI 35.0-35.9 Obesity classification: adult class 2 (BMI 35 - 39.9) Obesity type: due to excess calories Serious obesity comorbidity presence: with serious comorbidity Hypercholesterolemia E78.00 Essential tremor G25.0 Osteopenia M85.80 Urge incontinence N39.41 Blood pressure elevated without history of HTN R03.0
== END 2023-12-28 11:19 | disposition home or self-care (01) ==
PROVIDERS: PCP Internal Medicine; Visit Provider Internal Medicine
DX: Z00.00 Encounter for general adult medical examination without abnormal findings (principal); E66.01 Morbid (severe) obesity due to excess calories; Z68.35 Body mass index [BMI] 35.0-35.9, adult; E78.00 Pure hypercholesterolemia, unspecified; G25.0 Essential tremor; M85.80 Other specified disorders of bone density and structure, unspecified site; N39.41 Urge incontinence; R03.0 Elevated blood-pressure reading, without diagnosis of hypertension; Z23 Encounter for immunization
CPT/HCPCS: 90471; 90714; G0439

== ENCOUNTER 2025-04-11 11:38 | Outpatient (AMB) | payer MEDICARE, SELFPAY ==
--- NOTE | 2025-04-11 11:39 | MHC.PC.OV ---
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 Required: No Accompanied by: Self / Same As Patient Allergies No Known Allergies Allergy (Verified 04/11/25 11:41) Medication List - Last Reconciled 04/11/25 by Yocasta Hilario PA-C ascorbate calcium (vitamin C) 250 mg PO DAILY blood pressure monitor (Blood Pressure Kit) As directed multivitamin 1 tab PO DAILY propranolol 40 mg PO BID 90 days trazodone 50 mg PO BEDTIME 90 days Tobacco use date assessed: 04/11/25 Fall risk assessment: No Falls in past year Last assessed Fall Risk: 04/11/25 Dental Screening Dental Screen Date: 04/11/25 Did you have a dental visit in the last 12 months?: No Did you have a dental problem in the last 6 months where you did not have access to dental care?: No Was dental information given to patient?: No HPI Swollen leg/ bp follow up HPI Details 84 year old female with past medical history of hypercholesterolemia, tremor, osteopenia, actinic keratoses, PVD last seen 12/2023 coming in for follow up. Presenting with bilateral lower extremity swelling. The swelling began approximately two weeks ago after discontinuing the use of compression stockings. The patient had been using compression stockings for over a year, which helped manage the swelling. The swelling has worsened since stopping the use of compression stockings. The patient reports sitting for extended periods, which may contribute to the swelling and does not elevate her legs. The patient denies any sores on the legs but has a fungal infection between the toes. The patient experiences shortness of breath on exertion, such as when walking short distances which has been going on for many years now and has not worsened or changed. [facility] Medical History Bilateral lower extremity edema Adult general medical exam Shortness of breath Encounter for screening mammogram for malignant neoplasm of breast Screening for breast cancer Constipation UTI (urinary tract infection) Left renal stone C. difficile diarrhea Patellofemoral arthritis Degenerative disc disease, lumbar Essential tremor Insomnia Osteopenia Obesity Hypercholesterolemia Surgical History History of colonoscopy Adnexal mass History of colectomy Diverticular disease Social History Housing: House Alcohol intake: current Alcohol intake frequency: a few times a week Comment: 2-3 x a week 2 glasses Patient Tobacco Use Status: Former Tobacco user Tobacco use type: Cigarette Years Smoked: Quit 1980 hx of 2 pack a day e-Cigarette/Vaping Use: Never Used Second Hand Smoke Exposure: No service: No Current occupational status: retired Cognitive needs: No Hearing needs: No Vision needs: No Questionnaire PHQ-9 Over the last 2 weeks, how often have you been bothered by any of the following problems? 1. Little interest or pleasure in doing things: not at all 2. Feeling down, depressed, or hopeless: not at all 3. Trouble falling or staying asleep, or sleeping too much: not at all 4. Feeling tired or having little energy: not at all 5. Poor appetite or overeating: not at all 6. Feeling bad about yourself - or that you are a failure or have let yourself or your family down: not at all 7. Trouble concentrating on things, such as reading the newspaper or watching television: not at all 8. Moving or speaking so slowly that other people could have noticed. Or the opposite - being so fidgety or restless that you have been moving around a lot more than usual: not at all 9. Thoughts that you would be better off or of hurting yourself in some way: not at all Total score: 0 Depression Screening Interpretation: Negative Depression Screening Done: Yes 67192 - PHQ-9 Billing: Yes Source: Developed by Drs. Russ Neely, Nehal Landry, Jaiden Khanna and colleagues, with an educational irineo from [employer]. Thrive Questionnaire Date Thrive assessed: 10/15/22 I am a: Patient What is your living situation today?: I have a steady place to live Within the past 12 months, did the food you bought not last and you didn't have the money to get more?: I choose not to answer this question Within the past 12 months, did you worry whether your food would run out before you got money to buy more?: I choose not to answer this question Do you have trouble paying for medicines?: No Do you have trouble getting transportation to medical appointments?: No Do you have trouble paying your heating and electricity bill?: No Do you have trouble taking care of your child, family member or friend?: No Do you have trouble with day-to-day activities such as bathing, preparing meals, shopping, managing finances, etc.?: No Are you currently unemployed and looking for a job?: No (unemployed and not looking ) Are you interested in more education?: No Please select the resources that you would like help with: None Currently or been in a relationship where the following occur: No concerns reported THRIVE Score: 0 AUDIT C Alcohol Use Questionnaire (AUDIT-C) 1. How often do you have a drink containing alcohol?: 2-3 times a week 2. How many drinks containing alcohol do you have on a typical day when you are drinking?: 1 or 2 3. How often do you have six or more drinks on one occasion?: Never Total Score: 3 Score Reviewed/Action Taken: Yes ZARIA-7 AMB Questionnaire ZARIA-7 Date ZARIA - 7 assessed: 04/11/25 Feeling nervous, anxious, or on edge: 1 = Several days Not being able to stop or control worryin = Not at all Worrying too much about different things: 1 = Several days Trouble relaxin = Not at all Being so restless that it is hard to sit still: 0 = Not at all Becoming easily annoyed or irritable: 0 = Not at all Feeling afraid as if something awful might happen: 0 = Not at all Total ZARIA-7 score (0-4 normal; 5-9 mild; 10-14 moderate; 15-21 severe): 2 Source: Developed by Drs. Russ Neely, Nehal Landry, Jaiden Khanna and colleagues, with an educational irineo from [employer]. ZARIA-7 Assessment Billing ZARIA-7 Assessment Tool: ZARIA-7 Assessment 19457 Review of Systems Const Denies body aches, Denies chills, Denies fever(s), Denies headache(s) and Denies poor appetite Eyes Reports no additional complaints ENT Denies dizziness and Denies headache(s) Card Denies chest pain, Denies irregular heart rhythm, Reports leg edema, Denies lightheadedness, Denies dyspnea and Reports dyspnea on exertion Resp Denies cough, Denies dyspnea and Reports dyspnea on exertion GI Denies diarrhea, Denies nausea and Denies vomiting Reports no additional complaints Musc Reports no additional complaints and Denies abnormal gait Skin/Breast Reports system reviewed and no additional complaints, except as documented Neuro Denies abnormal gait, Denies dizziness and Denies headache(s) Psych Reports no additional complaints Physical exam (Primary Care) Vital Signs: Last Vital Signs Temp 97.3 F 04/11/25 11:42 Pulse 66 04/11/25 11:42 BP 118/76 04/11/25 11:42 Pulse Ox 97 04/11/25 11:42 Oxygen Delivery Method Room Air 04/11/25 11:42 BMI result Body Mass Index 37.2 Tobacco/Smoking Status: Tobacco use Status Tobacco use date assessed 04/11/25 04/11/25 11:51 Patient Tobacco Use Status Former Tobacco user 04/11/25 11:51 Tobacco use type Cigarette 04/11/25 11:51 e-Cigarette/Vaping Use Never Used 04/11/25 11:51 PHQ-9: PHQ-9 Score PHQ-9: Total score 0 04/11/25 11:55 Depression Screening Interpretation: Negative Thrive Assessment: Date of Thrive Assessment Date Thrive assessed 10/15/22 04/11/25 11:51 Currently or been in a relationship where the following occur: No concerns reported Const General: cooperative, healthy appearing, comfortable and no acute distress Orientation/consciousness: patient oriented x3 [facility] Head: Yes normocephalic Ears: hearing grossly normal bilaterally General nose exam: Normal external nose present Eyes General: appearance normal, both eyes and all related structures Conjunctivae: conjunctivae normal Neck Neck: Yes full ROM and Yes no lymphadenopathy Resp Effort & Inspection: normal respiratory effort Auscultation: clear to auscultation bilaterally, no crackles, no rales, no rhonchi and no wheezes Cardio Rate: regular rate Rhythm: regular rhythm Skin General skin exam: no rashes or lesions noted Neuro General: patient oriented x3 Gait exam (Neuro): Normal gait present Extrem Other: 2 + pitting edema of kirsten LE without overlying skin changes. No redness, warmth or TTP of kirsten LE. No calf TTP kirsten. fungal infection between toes General: Yes normal to inspection, Yes full ROM and Yes edema (2+) Psych Affect: normal affect Attitude: cooperative Insight: Good insight present (Psych) Judgement: Good judgement present (Psych) Coding Level of Care Code Est Pt Level 4 (66096) Diagnoses Leg swelling M79.89 Dyspnea on exertion R06.09 Tinea pedis B35.3 Actinic keratoses L57.0 Additional Codes ZARIA-7 Assessment Billing - ZARIA-7 Assessment Tool: ZARIA-7 Assessment 85673 ([id number]) PHQ-9 - 43552 - PHQ-9 Billing: Yes ([id number]) Assessment & Plan Assessment & Plan (1) Leg swelling: Code(s): M79.89 - Other specified soft tissue disorders Category: Medical Plan: The plan includes resuming the use of compression stockings or wraps to manage the swelling along with leg elevation and exercise as tolerated. Blood work will be conducted to assess kidney, heart, and liver function. A chest x-ray will be performed to evaluate for potential heart enlargement or fluid accumulation. The patient is advised to elevate her legs and avoid prolonged sitting to reduce swelling. Suspicion for DVT at this time as the swelling is bilateral and without calf pain, redness, tenderness or warmth. Reviewed red flag symptoms and when to present for re-evaluation (2) Dyspnea on exertion: Code(s): R06.09 - Other forms of dyspnea Category: Medical Plan: A chest x-ray will be performed to evaluate for any underlying cardiac or pulmonary issues. The patient is advised to monitor for any worsening of symptoms and report them promptly. Consider echocardiogram. (3) Tinea pedis: Code(s): B35.3 - Tinea pedis Category: Medical Plan: Antifungal cream will be prescribed for application between the toes to treat the fungal infection. (4) Actinic keratoses: Comment: R neck area Code(s): L57.0 - Actinic keratosis Category: Medical Plan: A referral to dermatology will be made for further evaluation of the skin lesion on the neck. She has not seen by Dermatology when she was referred 3 years ago. Plan During the visit, we discussed the importance of managing the bilateral lower extremity edema through the use of compression stockings or wraps and elevating the legs. We also talked about conducting blood work to check kidney, heart, and liver function, and performing a chest x-ray to evaluate for heart enlargement or fluid accumulation. I recommended a dermatology referral for the skin lesion on the neck. We also discussed the use of antifungal cream for the fungal infection between the toes. The patient was advised to monitor for any worsening of symptoms, particularly shortness of breath, and to report them promptly. This note was constructed using voice recognition software. While every effort has been made to ensure accuracy and farm contractor, still areas may have been included sometimes these areas may affect the content or meeting of the given symptoms. Total time spent caring for the patient today was 20 minutes. This includes time spent before the visit reviewing the chart, time spent during the visit, and time spent after the visit and documentation. Patient was informed and verbally consented to the use of an ambient scribe for clinic note documentation during this visit. Orders: Orders Complete Blood Count Auto Diff Today I73.9 - Peripheral vascular disease, unspecified, Z00.00 - Encounter for general adult medical examination without abnormal findings Comprehensive Met. Panel Today I73.9 - Peripheral vascular disease, unspecified, Z00.00 - Encounter for general adult medical examination without abnormal findings Vitamin D 25-OH Total Today I73.9 - Peripheral vascular disease, unspecified, Z13.21 - Encounter for screening for nutritional disorder Lipid Panel Today E78.00 - Pure hypercholesterolemia, unspecified B Type Natriuretic Peptide Today R06.09 - Other forms of dyspnea XR chest 2V Today R06.09 - Other forms of dyspnea TSH reflex Free T4 Today I73.9 - Peripheral vascular disease, unspecified, Z13.29 - Encounter for screening for other suspected endocrine disorder Vitamin B12 and Folate Today I73.9 - Peripheral vascular disease, unspecified, Z13.21 - Encounter for screening for nutritional disorder Referrals Dermatology Referral L57.0 - Actinic keratosis Medications: New clotrimazole 1% (Antifungal (clotrimazole)) 1 appl topical BID 15 grams 0RF
[2025-04-11 11:42] VITALS: BP 118/76; PULSE 66; TEMP 36.3; O2SAT 97; BMI 37.2
--- OUTSIDE RECORDS SUMMARY | 2025-04-11 12:52 | XMS_ITS | Patient Health Record ---
Author Organization [facility] Address [address] [place] [address] Care Team Providers Care Resident Care Supervisor Name Role Phone Lien Land DO Primary Care Provider Ang Jenkins Unavailable [phone] Reason For Referral No Information Medications Medication SIG (Take, Route, Frequency, Duration) Notes Start Date End Date Status Vitamin C 500 MG 1 tablet Orally Once a day 2013 Active Simvastatin 20 MG Oral; Duration: 90 Active Propranolol HCl 20 MG Orally Twice a day Active Multi Vitamin/Minerals Orally 03/29/2014 Active Glucosamine 1500 Complex Orally 03/29/2014 Active Calcium 600 MG 1 tablet with meals Orally Once a day 03/29/2014 Active Aspirin 81 MG 1 tablet Orally Once a day 4 Active ALPRAZolam 0.25 MG 1 tablet on the tong ue and allow to dissolve Orally Twice a day 03/29/2014 Active aleve Active Social History Tobacco use other than smoking: Question Answer Notes Are you an other tobacco user? No Problems Problem Type SNOMED Code ICD Code Onset Dates Problem Status W/U Status Risk Notes Problem Ingrowing nail (L60.0) Active confirmed Plan Of Treatment Pending Test Test Name Order Date 45801-Gxwlhfhg Plate 09/15/2015 57194-Mpfmscji Plate 11/15/2016 92628- Debride <25 sq cm 10/01/2015 53563- Debride <25 sq cm 05/02/2014 86247 I&D ABSCESS- SIMPLE,SINGLE 014 [id number] I&D ABSCESS- SIMPLE,SINGLE 015 02432 I&D ABSCESS- SIMPLE,SINGLE 014 Insurance Providers Payer Name Payer Address Payer Phone Subscriber Number Group Number Insured Name Patient Relationship to Insured Coverage Start Date Coverage End Date Medicare National [employer] [address] [place] [address] [id number] Ailin Olivo Self - patient is the insured [employer] [address] [place] [address] [id number] Ailin Olivo Self - patient is the insured Medical (General) History Medical History History ICD Code Cholesterol Diverticulosis Measles Mumps Chicken pox Diverticulitis Surgical History Surgery Date(Month/Year) section intestinal surgery 2012 Hospitalization History Reason Date(Month/Year) [place] [facility] [place] 0 10[place]2014
--- OUTSIDE RECORDS SUMMARY | 2025-04-11 12:52 | XMS_ITS | Clinical Summary ---
Author Organization [facility] Address [address] [place] [address] Care Team Providers Care Machine Sweeper Brush Maker Name Role Phone Lien Land Primary Care Provider [phone] Allergies No known active allergies Medications Medication Sig Dispensed Refills Start Date End Date Status Multiple Vitamins-Minerals (MULTIVITAMIN ADULT PO) Take by mouth. 0 Active Yaygda-Mtvdv-Aoit-B1 2-Liver (LIVERITE PO) Take by mouth. 0 Active Ascorbic Acid (VITAMIN C) 500 MG CAPS Take by mouth. 0 Active Misc Natural Products (GLUCOSAMINE CHOND COMPLEX/MSM PO) Take 1,500 mg by mouth. 0 Active propranolol (INDERAL) 10 MG tabletIndications:He adache, unspecified headache type TAKE 2 TABLETS BY MOUTH EVERY MORNING AND EVERY EVENING 360 tablet 3 05/29/2019 Active simvastatin (ZOCOR) tablet 20 mg Take 1 tablet (20 mg total) by mouth every evening. 90 tablet 3 11/27/2019 Active traZODone (DESYREL) 50 MG tablet Take 1 tablet (50 mg total) by mouth every night at bedtime. 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 Tremor Obesity Low back pain Hyperlipidemia Resolved Problems Problem Noted Date Diagnosed Date Resolved Date Screening for breast cancer 11/27/2019 Screening for osteoporosis 0 11/27/2019 Immunizations Name Administration Dates Next Due Influenza Trivalent (Fluzone High Dose) 0.7 mL (65yrs &>) 05/23/2018 Tdap 01/24/2018 Zostavax (Zoster Live) 06/15/2014 Family History Medical History Relation Name Comments Cancer Brother 1 Multiple sclerosis Daughter Diabetes Father Heart disease Father Lung cancer Father Hypertension Mother Stroke Mother No Sig Med Hx Son Relation Name Status Comments Brother 1 pancreatic Brother 2 Daughter Alive Father lung Maternal Grandfather Maternal Grandmother Mother Paternal Grandfather Paternal Grandmother Son Alive Social History Tobacco Use Types Packs/Day Years Used Date Smoking Tobacco: Former Cigarettes 2 20 0 01/25/1960 - 08/15/1979 Smokeless Tobacco: Never Alcohol Use Standard Drinks/Week Comments Yes 3 (1 standard drink = 0.6 oz pur e alcohol) Sex and Gender Information Value Date Recorded Sex Assigned at Not on file Gender Identity Not on file Sexual Orientation Not on file Last Filed Vital Signs Vital Sign Reading Time Taken Comments Blood Pressure 120/80 05/22/2019 10:49 AM EDT Pulse 66 05/22/2019 9:50 AM EDT Temperature 36.5 C (97.7 F) 05/22/2019 9:50 AM EDT Respiratory Rate 16 05/22/2019 9:50 AM EDT Oxygen Saturation 95% 05/22/2019 9:50 AM EDT Inhaled Oxygen Concentration - - Weight 87.7 kg (193 lb 6.4 oz) 05/22/2019 9:50 A M EDT Height 158.8 cm (5' 2.5 ) 05/22/2019 9:50 AM EDT Body Mass Index 34.81 05/22/2019 9:50 AM EDT Plan of Treatment Health Maintenance Due Date Last Done Comments COVID-19 Vaccine (#1) 04/11/1941 Pneumococcal Vaccine (1 of 1 - PCV) 2007 Shingrix-Zoster Vaccine (1 of 2) 08/10/2014 RSV Adult > 60+ Yrs or (1 - 1-dose 75+ series) 2017 Osteoporosis Screening (DEXA Scan) 04/27/2020 04/27/2018 (Declined), 05/15/2016 BMI Counseling 05/22/2020 05/22/2019, 11/13, 04/27/2018 Depression Screening 05/22/2020 05/22/2019, 05/22/2019, 05/22/2019, Additional history exists Fall Risk Assessment 05/22/2020 05/22/2019, 05/22/2019, 05/22/2019, Additional history exists Preventative Health Evaluation 05/22/2020 05/22/2019, 04/27/2018 Influenza Vaccine (#1) 2025 05/23/2018 DTap / Tdap / Td (2 - Td or Tdap) 01/25/2028 01/24/2018 Hepatitis B Vaccines Aged Out No long er eligible based on patient's age to complete this topic RSV Ped < 20 months Aged Out No longe r eligible based on patient's age to complete this topic Care Teams Machine Sweeper Brush Maker Relationship Specialty Start Date End Date Lien Land DO PCP - General Family Medicine 01/17/18
--- OUTSIDE RECORDS SUMMARY | 2025-04-11 12:52 | XMS_ITS | Patient Health Record ---
Author Organization [facility] Address [address] [place] [address] Care Team Providers Care Manager Of Finance Name Role Phone Russ Kim Unavailable [phone] Reason For Referral No Information Plan Of Treatment No Information
== END 2025-04-11 12:26 | disposition home or self-care (01) ==
LOC: HO.HMCH 11:39
PROVIDERS: PCP Internal Medicine
DX: M79.89 Other specified soft tissue disorders (principal); R06.09 Other forms of dyspnea; B35.3 Tinea pedis; L57.0 Actinic keratosis

== ENCOUNTER 2025-04-11 11:38 | Outpatient (REF) | payer MEDICARE, SELFPAY ==
--- NOTE | ~2025-04-11 | XR_ITS ---
EXAMINATION: XR CHEST 2 VIEWS HISTORY: R06.09 - Other forms of dyspnea COMPARISON: There are no prior studies available for comparison. FINDINGS: PA and lateral views of the chest are submitted. The lungs are expanded and clear. There is no pleural effusion, pneumothorax, or pulmonary vascular congestion. The heart is normal in size. 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 XR/XR chest 2V IMPRESSION: Clear lungs. Electronically signed by: Russ Ferguson MD 04/11/2025 01:19 PM EDT
[2025-04-11 12:52] LABS: MANUAL DIFF FLAG NO
[2025-04-11 13:45] LABS: Hematocrit 43.1 % (37.0-47.0); Hemoglobin 14.4 g/dl (12.0-16.0); Imm Gran Abs Auto 0.01 X10*3/uL (0.00-0.03); Imm Gran Pct Auto 0.1 % (0.0-0.4); Lymphocytes Absolute Auto 1.5 X10*3/uL (1.2-4.9); Mean Corpuscular HGB Conc 33.4 g/dl (31.0-35.0); Mean Corpuscular Hemoglobin 32.1 pg (27.0-33.0); Mean Corpuscular Volume 96.0 fL (80.0-98.0); NRBC Abs Auto 0.000 X10*3/uL (0.0-0.012); NRBC Pct Auto 0.0 /100WBC (0.0-0.2); Platelet Count 176 X10*3/uL (160-400); Red Blood Count 4.49 X10*6/uL (4.20-5.50); White Blood Count 7.5 X10*3/uL (4.8-10.8)
[2025-04-11 14:19] LABS: B Type Natriuretic Peptide 167 pg/mL (<100)
[2025-04-11 14:28] LABS: Alanine Aminotransferase 21 U/L (0-31); Albumin Level 3.8 g/dL (3.5-5.0); Alkaline Phosphatase 65 U/L (39-117); Anion Gap 13 (12-20); Aspartate Amino Transferase 37 U/L (5-31); Blood Urea Nitrogen 7 mg/dL (9-16); Calcium 9.0 mg/dL (8.4-10.2); Carbon Dioxide 28 mmol/L (22-29); Chloride 105 mmol/L (96-108); Cholesterol 197 mg/dL (<200); Estimated Glomerular Filt Rate > 60; HDL Cholesterol 43 mg/dL (>40); Potassium 4.6 mmol/L (3.3-5.1); Sodium 141 mmol/L (135-145); Total Protein 6.6 g/dL (6.5-8.0); Triglycerides 161 mg/dL (<150)
[2025-04-11 15:02] LABS: Folate 14.2 ng/mL (> or = 4.0); Vitamin B12 484 pg/mL (200-900)
== END 2025-04-11 11:39 | disposition home or self-care (01) ==
LOC: HO.XRAY 11:38
PROVIDERS: PCP Internal Medicine
DX: Z00.00 Encounter for general adult medical examination without abnormal findings (principal); Z13.29 Encounter for screening for other suspected endocrine disorder; Z13.21 Encounter for screening for nutritional disorder; I73.9 Peripheral vascular disease, unspecified; E78.00 Pure hypercholesterolemia, unspecified; R06.09 Other forms of dyspnea; M79.89 Other specified soft tissue disorders; B35.3 Tinea pedis; L57.0 Actinic keratosis; Z79.899 Other long term (current) drug therapy
CPT/HCPCS: 36415; 71046; 80053; 80061; 82306; 82607; 82746; 83880; 84443; 85025; 96127; 99212

== ENCOUNTER → 2025-04-11 12:52 | Outpatient (BNV) | payer MEDICARE, SELFPAY | PROVIDERS: PCP Internal Medicine; Visit Provider Radiology Diagnostic Radiology | DX: R06.09 Other forms of dyspnea (principal) | CPT/HCPCS: 71046 ==